=== PATIENT | male | born 1995 ===

== ENCOUNTER 2017-10-15 20:20 | Emergency (ER) | payer MEDICAID ==
[2017-10-15 20:41] VITALS: BP 136/71
[2017-10-15] MEDS ORDERED: Amoxicillin/Clavulanate TAB* 875 MG PO ONE (21:14)
[2017-10-15] MEDS ORDERED: Ibuprofen TAB* 600 MG PO ONE (21:14)
--- NOTE | 2017-10-15 21:14 | UC ---
Sid Hernandez Rebecca, scribed for Janna Riggins MD on 10/15/17 at 2102 . Dental HPI - HPI Summary HPI Summary: Pt is a 22 y/o M who presents to [facility] c/o right lower jaw pain and swelling for 2 days. Reports that he has "a ball" in the right lower jaw. Associated pain is currently severe, ranked 8/10 and characterized as stabbing. Has been taking Tylenol for pain, last dose this morning. Additionally c/o PAEZ. Denies fever, chills, ear pain. Had a cap placed in his left lower mouth which fell off. Took a left over dose of Amoxicillin at 1900 from a prior infection. Pt has a dentist in [place] smoked THC for pain pt's medications reviewed this visit - History of Current Complaint Chief Complaint: UCDentalProblem Stated Complaint: MOUTH PAIN Time Seen by Provider: 10/15/17 20:56 Hx Obtained From: Patient Onset/Duration: Lasting Days - 2 days, Still Present Severity: Severe Pain Intensity: 8 Pain Scale Used: 0-10 Numeric Related History: Swelling - Allergies/Home Medications Allergies/Adverse Reactions: Allergies Allergy/AdvReac Type Severity Reaction Status Date / Time latex Allergy Rash Verified 10/15/17 20:41 Home Medications: Home Medications Acetaminophen [Tylenol Extra Strength] 1,000 mg PO 10/15/17 [History] PMH/Surg Hx/FS Hx/Imm Hx - Additional Past Medical History Additional PMH: PMHx: ADHD Previously Healthy: Yes Cardiovascular History: Hypertension - Surgical History Surgical History: Yes Surgery Procedure, Year, and Place: tib fib screw - Family History Known Family History: Negative: Cardiac Disease, Hypertension - Social History Occupation: Employed Full-time Lives: With Family Alcohol Use: None Substance Use Type: Marijuana Substance Use Comment - Amount & Last Used: daily Smoking Status (MU): Heavy Every Day Tobacco Smoker Type: Cigarettes Review of Systems Constitutional: Negative Skin: Negative Eyes: Negative ENT: Dental Pain - Right lower jaw pain, Other - Right lower jaw swelling; lost cap from left lower mouth Respiratory: Negative Cardiovascular: Negative Gastrointestinal: Negative Genitourinary: Negative Motor: Negative Neurovascular: Negative Musculoskeletal: Negative Neurological: Headache Psychological: Negative All Other Systems Reviewed And Are Negative: Yes - Comments Additional Review of Systems Comments: NEGATIVE: Fever, chills, ear pain. Physical Exam - Summary Physical Exam Summary: Vital Signs Reviewed: Yes A+Ox3, no distress Eyes: Conjunctiva Clear, DONNY. EOM intact and full ENT: Hearing grossly normal TM x 2 clear, turbinates wnl #18 broken tooth with large cavity and missing fillint + TTP along gumlind no fluctance mild facial edema no TMJ pain no intraoral edema mmoist, uvula midline, no exudate , no erythema Neck: Positive: Supple Respiratory: Positive: No respiratory distress, No accessory muscle use + CTA throughout no w/r Cardiovascular: RRR nl s1, s2 no m/r CBT <2 sec abd soft + BS nt/nd no guarding, no distension Musculoskeletal Exam: ASHLEY x 4 without difficulty Strength Intact, ROM Intact Neurological: Positive: Alert, + sensation throughout Psychological: Positive: Normal Response To Family Skin: Positive: no rash, no ecchymosis Triage Information Reviewed: Yes Vital Signs: Initial Vital Signs Temp 99.0 F 10/15/17 20:36 Pulse 68 10/15/17 20:36 Resp 18 10/15/17 20:36 BP 136/71 10/15/17 20:36 Pulse Ox 100 10/15/17 20:36 Dental Complaint Course/Dx - Course Course Of Treatment: I-STOP checked and showed nothing. Sending an urgent Rx to Elyssa Murphy. Patient medications reviewed this visit. Pt with dental infection and pain. motrin/apap. pt has dentist. swith and spit salt. otc ambusol - Differential Dx/Diagnosis Provider Diagnoses: dental pain Discharge - Sign-Out/Discharge Documenting (check all that apply): Discharge/Admit/Transfer - Discharge - Discharge Plan Condition: Stable Disposition: HOME Prescriptions: Amoxicillin/Clavulanate TAB* [Augmentin TAB 875*] 875 mg PO BID #20 tab Patient Education Materials: Dental Abscess (ED) Referrals: Gavin Naranjo MD [Primary Care Provider] - Additional Instructions: - Okay to alternate ibuprofen (Advil, Motrin)600mg and Tylenol every 3 hours for pain. Take with food. Do NOT take for more than 4-5 days -Swish and spit with warm salt water 3-4 times a day -Take anitbiotics as prescribed until gone -Stay well hydrated - frequent sips of cold fluids will be soothing to your throat (popsicles, jello, ice cream, ice water) -Contact your dentist tomorrow to schedule a follow-up appointment. - Billing Disposition and Condition Condition: STABLE Disposition: Home The documentation as recorded by the Sid blakely Rebecca accurately reflects the service I personally performed and the decisions made by , Janna Riggins MD.
== END 2017-10-15 21:29 | disposition home or self-care (01) ==
LOC: UCEAST 20:20
DX: K08.89 Other specified disorders of teeth and supporting structures (principal); R68.84 Jaw pain; R22.0 Localized swelling, mass and lump, head; R51 Headache; Z91.040 Latex allergy status; K04.7 Periapical abscess without sinus
CPT/HCPCS: 99202; A9270-GY; G0463